=== PATIENT | female | born 1965 | race Caucasian/White ===

== ENCOUNTER 2022-12-23 03:16 | Emergency (ER) | payer BC | END 2022-12-23 04:25 | disposition home or self-care (01) | LOC: LL.ED 03:16 | DX: S01.111A Laceration without foreign body of right eyelid and periocular area, initial encounter (principal); F10.129 Alcohol abuse with intoxication, unspecified; F17.210 Nicotine dependence, cigarettes, uncomplicated; F32.A Depression, unspecified; Z79.899 Other long term (current) drug therapy; Z88.1 Allergy status to other antibiotic agents; W19.XXXA Unspecified fall, initial encounter; Y92.29 Other specified public building as the place of occurrence of the external cause | CPT/HCPCS: 12011; 99283; 99284 ==